=== PATIENT | male | born 1950 | race Caucasian/White ===

== ENCOUNTER 2017-08-31 07:49 | Inpatient (IN) | payer MEDICARE, OTHER ==
[~2017-08-31] VITALS: Ht 190.5 cm; Wt 136.4 kg
[~2017-08-31 07:49] MED LIST: ATOR20TA66 PO; BACL10TA PO; BENA20TA10 PO; CHOL2000 PO; CITA40TA22 PO; LAMO100T2 PO; LEVE10002 PO; METF500T4 PO; METO-384 PO; MULT-342 PO; RISP2TAB97 PO; UBID100C45 PO; UMEC1DIS INH
[2017-08-31] MEDS ORDERED: normal saline 1000ml 1,000 ML IV ONE (08:03)
[2017-08-31 08:57] LABS: BASOPHILS % (AUTO) 0.1 % (0-1); EOSINOPHILS # (AUTO) 0.1 X10'3 (0-0.9); HEMATOCRIT 44.2 % (42.0-52.0); LYMPHOCYTES # (AUTO) 0.5 X10'3 (1.1-4.8); LYMPHOCYTES % (AUTO) 3.2 % (21-51); MEAN CORPUSCULAR HEMOGLOBIN 31.5 PG (27.0-31.0); MEAN CORPUSCULAR VOLUME 92.7 FL (78-98); MEAN PLATELET VOLUME 7.1 FL (7.4-10.4); MONOCYTES # (AUTO) 0.2 X10'3 (0-0.9); MONOCYTES % (AUTO) 1.2 % (2-12); NEUTROPHILS # (AUTO) 13.3 X10'3 (1.8-7.7); NEUTROPHILS % (AUTO) 94.5 % (42-75); PLATELET COUNT 241 X10'3 (140-440); RED BLOOD COUNT 4.77 X10'6 (4.70-6.10); RED CELL DISTRIBUTION WIDTH 13.6 % (11.5-14.5)
[2017-08-31 09:07] LABS: PARTIAL THROMBOPLASTIN TIME 26 SECONDS (22-32)
[2017-08-31 09:16] LABS: PLATELET ESTIMATE NORMAL; TOTAL CELLS COUNTED 100
[2017-08-31 09:28] LABS: ALANINE AMINOTRANSFERASE 27 U/L (12-78); ALBUMIN 3.9 G/DL (3.4-5.0); ALBUMIN/GLOBULIN RATIO 1.1 (1.1-1.5); ALKALINE PHOSPHATASE 127 IU/L (46-116); ANION GAP 12 (8-16); ASPARTATE AMINO TRANSFERASE 24 U/L (10-37); BILIRUBIN,TOTAL 0.3 MG/DL (0.1-1.0); BLOOD UREA NITROGEN 12 MG/DL (7-18); BUN/CREATININE RATIO 8.6 (5.4-32.0); CALCIUM 8.9 MG/DL (8.5-10.1); CHLORIDE 98 MMOL/L (99-107); ETHANOL < 0.010 GM/DL (0.0-0.010); GLUCOSE 140 MG/DL (70-104); MAGNESIUM 1.8 MG/DL (1.5-2.4); PHOSPHORUS 3.2 MG/DL (2.3-4.5); POTASSIUM 4.8 MMOL/L (3.5-5.1); SODIUM 134 MMOL/L (135-145); TOTAL CARBON DIOXIDE 24.1 MMOL/L (24-32); TOTAL PROTEIN 7.3 G/DL (6.4-8.2); eGFR 51 ML/MIN
[2017-08-31 09:30] LABS: ACETAMINOPHEN < 2.0 UG/ML (10-30)
[2017-08-31] MEDS ORDERED: levetiracetam 250mg tablet PO ONE (09:50)
[2017-08-31] MEDS ORDERED: lamoTRIgine 100mg tablet PO SCH (09:50)
[2017-08-31] MEDS ORDERED: normal saline 1000ml 1,000 ML IV SCH (10:26)
[2017-08-31] MEDS ORDERED: HYDROcodone/acetaminophen 5mg/325mg tablet PO PRN (10:30)
[2017-08-31] MEDS ORDERED: potassium Cl 20 mEq SR tablet PO PRN ×2 (10:30)
[2017-08-31] MEDS ORDERED: potassium Cl 40MEQ/NS 500ml 500 ML IV PRN ×2 (10:30)
[2017-08-31] MEDS ORDERED: acetaminophen 325mg tablet PO PRN ×2 (10:30)
[2017-08-31] MEDS ORDERED: magnesium 4gm in 100ml NS 100 ML IV PRN (10:30)
[2017-08-31] MEDS ORDERED: HYDROmorphone 1 mg/ml syringe IV PRN (10:30)
[2017-08-31] MEDS ORDERED: magnesium 2GM in 50ml NS 50 ML IV PRN (10:30)
[2017-08-31] MEDS ORDERED: mag hydrox/Alum hydrox/simeth 30ml oral suspension PO PRN (10:30)
[2017-08-31] MEDS ORDERED: ondansetron/PF 4mg/2ml inj IV PRN (10:30)
[2017-08-31] MEDS ORDERED: magnesium hydroxide 30ml (MOM) UD suspension PO PRN (10:30)
[2017-08-31] MEDS ORDERED: HYDROcodone/acetaminophen 10/325mg tab PO PRN (10:30)
[2017-08-31 12:52] LABS: CLARITY,URINE Clear (Clear); COLOR,URINE Yellow (Yellow); GLUCOSE, URINE Negative (Neg); KETONES,URINE Negative (Neg); LEUKOCYTE ESTERASE ,URINE Negative (Neg); NITRITES, URINE Negative (Neg); OCCULT BLOOD,URINE Negative (Neg); PH,URINE 5.5 (4.8-8.0); PROTEIN,URINE 30 mg/dl (Neg)
[2017-08-31 13:04] LABS: UA COLLECTION TYPE NON-SPECIFIED
[2017-08-31 13:05] LABS: BACTERIA,URINE NONE SEEN /HPF (Neg); MUCUS STRANDS FEW /LPF (Neg); RBC,URINE NONE SEEN /HPF (0-2); SQUAMOUS EPITHELIAL CELL,UR NONE SEEN /LPF (FEW); WBC,URINE NONE SEEN /HPF (0-4)
[2017-08-31 13:07] LABS: URINE AMPHETAMINE SCREEN NEGATIVE (Neg); URINE BARBITUATE SCREEN NEGATIVE (Neg); URINE BENZODIAZEPINES SCREEN POSITIVE (Neg); URINE CANNABINOID SCREEN POSITIVE (Neg); URINE COCAINE SCREEN NEGATIVE (Neg); URINE METHADONE SCREEN NEGATIVE (Neg); URINE OPIATE SCREEN NEGATIVE (Neg); URINE PHENCYCLIDINE SCREEN NEGATIVE (Neg)
[2017-08-31 18:50] VITALS: BP 150/74
[2017-08-31] MEDS: lamoTRIgine 100mg tablet PO SCH (20:10)
[2017-08-31] MEDS: levetiracetam 250mg tablet PO SCH (20:10)
[2017-08-31] MEDS: vitamin D (cholecalciferol) 1,000 unit tablet PO SCH (20:10)
[2017-08-31] MEDS: metFORMIN 500mg tablet PO SCH (20:12)
[2017-08-31] MEDS ORDERED: risperiDONE 2mg tablet PO SCH (21:00)
[2017-08-31 22:52] VITALS: BP 167/91
[2017-09-01] MEDS ORDERED: LORazepam 2 mg/ml vial IM PRN (05:25)
[2017-09-01] MEDS ORDERED: LORazepam 2 mg/ml vial IV PRN (05:25)
[2017-09-01 06:00] VITALS: BP 123/92
[2017-09-01 06:00] LABS: BASOPHILS % (AUTO) 0.2 % (0-1); EOSINOPHILS # (AUTO) 0.1 X10'3 (0-0.9); HEMATOCRIT 41.9 % (42.0-52.0); HEMOGLOBIN 14.3 g/dl (14.0-17.9); LYMPHOCYTES # (AUTO) 1.7 X10'3 (1.1-4.8); LYMPHOCYTES % (AUTO) 15.3 % (21-51); MEAN CORPUSCULAR HEMOGLOBIN 31.5 PG (27.0-31.0); MEAN CORPUSCULAR HGB CONC 34.1 % (33.0-36.5); MEAN CORPUSCULAR VOLUME 92.4 FL (78-98); MEAN PLATELET VOLUME 7.4 FL (7.4-10.4); MONOCYTES # (AUTO) 0.6 X10'3 (0-0.9); MONOCYTES % (AUTO) 5.7 % (2-12); NEUTROPHILS # (AUTO) 8.8 X10'3 (1.8-7.7); NEUTROPHILS % (AUTO) 77.8 % (42-75); PLATELET COUNT 233 X10'3 (140-440); RED BLOOD COUNT 4.53 X10'6 (4.70-6.10); RED CELL DISTRIBUTION WIDTH 13.3 % (11.5-14.5); WHITE BLOOD COUNT 11.3 X10'3 (4.5-11.0)
[2017-09-01 06:10] LABS: PARTIAL THROMBOPLASTIN TIME 27 SECONDS (22-32)
[2017-09-01 06:14] LABS: ALBUMIN 3.7 G/DL (3.4-5.0); ANION GAP 9 (8-16); BLOOD UREA NITROGEN 10 MG/DL (7-18); BUN/CREATININE RATIO 9.1 (5.4-32.0); CALCIUM 8.8 MG/DL (8.5-10.1); CHLORIDE 101 MMOL/L (99-107); GLUCOSE 101 MG/DL (70-104); MAGNESIUM 1.5 MG/DL (1.5-2.4); POTASSIUM 3.7 MMOL/L (3.5-5.1); SODIUM 137 MMOL/L (135-145); TOTAL CARBON DIOXIDE 26.7 MMOL/L (24-32); eGFR 67 ML/MIN
[2017-09-01] MEDS: levetiracetam 250mg tablet PO SCH (07:52)
[2017-09-01] MEDS: metFORMIN 500mg tablet PO SCH (07:57)
[2017-09-01] MEDS: lamoTRIgine 100mg tablet PO SCH (07:59)
[2017-09-01] MEDS ORDERED: metoprolol succinate 25mg (24-HOUR) SR. Tablet PO SCH (08:00)
[2017-09-01] MEDS: vitamin D (cholecalciferol) 1,000 unit tablet PO SCH (08:00)
[2017-09-01] MEDS ORDERED: K and/or MAG REPLACEMENT MC SCH (08:00)
[2017-09-01] MEDS ORDERED: multivitamins, therapeutics tablet PO SCH (08:00)
[2017-09-01] MEDS ORDERED: atorvastatin 20mg tablet PO SCH (08:00)
[2017-09-01] MEDS ORDERED: Umeclidinium Brm/Vilanterol Tr (Anoro Ellipta 62.5-25 Mcg INH) IH SCH (08:00)
[2017-09-01] MEDS ORDERED: lisinopril 20mg tablet PO SCH (08:00)
[2017-09-01] MEDS ORDERED: non-formulary drug (Ubidecarenone (Co Q-10) 100 MG) PO SCH (08:00)
[2017-09-01] MEDS ORDERED: citalopram 20mg tablet PO SCH (08:00)
[2017-09-01 10:00] VITALS: BP 108/72
[2017-09-01] MEDS ORDERED: magnesium 4gm in 100ml NS 100 ML IV ONE (10:05)
[2017-09-01] MEDS: magnesium Cl slow-release 64mg tablet PO PRN ×2 (11:02→12:30)
[2017-09-01] MEDS ORDERED: MAGN400C PO (15:49)
== END 2017-09-01 17:45 | disposition home or self-care (01) | DRG 100 ==
LOC: ER 07:50 → ED HOLD 10:26 → ORTHO 4S 12:47
PROVIDERS: ADMIT Emergency Medicine; ATTEND Emergency Medicine
DX: G40.901 Epilepsy, unspecified, not intractable, with status epilepticus (principal); R65.11 Systemic inflammatory response syndrome (SIRS) of non-infectious origin with acute organ dysfunction; N17.9 Acute kidney failure, unspecified; J44.9 Chronic obstructive pulmonary disease, unspecified; E11.9 Type 2 diabetes mellitus without complications; G47.30 Sleep apnea, unspecified; R41.82 Altered mental status, unspecified; R60.9 Edema, unspecified; I10 Essential (primary) hypertension; Z72.89 Other problems related to lifestyle; Z88.0 Allergy status to penicillin; Z79.84 Long term (current) use of oral hypoglycemic drugs; Z79.899 Other long term (current) drug therapy; Z87.891 Personal history of nicotine dependence
CPT/HCPCS: 36415; 70450; 80048; 80053; 80305; 80320; 80329; 81001; 82948; 83605; 83735; 84100; 84443; 84484; 85025; 85610; 85730; 87040; 87070; 93005; 96360; 97116; 97162; 97530; 99291; J3475; J7030

== ENCOUNTER 2018-02-12 17:36 | Emergency (ER) | payer MEDICARE, OTHER ==
[~2018-02-12] VITALS: Ht 170.2 cm; Wt 134.0 kg
[~2018-02-12 17:36] MED LIST changes: +MAGN400C PO; +METF-436 PO; -METF500T4 PO
[2018-02-12] MEDS ORDERED: normal saline 1000ML IV soln IVB ONE (17:40)
[2018-02-12] MEDS ORDERED: LORazepam 2 mg/ml vial IV ONE (18:00)
[2018-02-12 18:10] LABS: BASOPHILS % (AUTO) 0.3 % (0-1); EOSINOPHILS % (AUTO) 0.1 % (0-6); HEMOGLOBIN 15.4 g/dl (14.0-17.9); LYMPHOCYTES # (AUTO) 1.4 X10'3 (1.1-4.8); LYMPHOCYTES % (AUTO) 12.8 % (21-51); MEAN CORPUSCULAR HEMOGLOBIN 31.8 PG (27.0-31.0); MEAN CORPUSCULAR HGB CONC 34.3 % (33.0-36.5); MEAN CORPUSCULAR VOLUME 92.7 FL (78-98); MEAN PLATELET VOLUME 7.3 FL (7.4-10.4); MONOCYTES # (AUTO) 0.4 X10'3 (0-0.9); NEUTROPHILS # (AUTO) 9.2 X10'3 (1.8-7.7); NEUTROPHILS % (AUTO) 82.8 % (42-75); PLATELET COUNT 232 X10'3 (140-440); RED BLOOD COUNT 4.85 X10'6 (4.70-6.10); RED CELL DISTRIBUTION WIDTH 13.6 % (11.5-14.5); WHITE BLOOD COUNT 11.1 X10'3 (4.5-11.0)
[2018-02-12 18:20] LABS: PARTIAL THROMBOPLASTIN TIME 28 SECONDS (22-32); PROTHROMBIN TIME 10.3 SECONDS (9.0-12.0)
[2018-02-12 18:24] LABS: ALANINE AMINOTRANSFERASE 25 U/L (12-78); ALBUMIN 3.6 G/DL (3.4-5.0); ALBUMIN/GLOBULIN RATIO 0.9 (1.1-1.5); ALKALINE PHOSPHATASE 133 IU/L (46-116); ANION GAP 11 (8-16); BILIRUBIN,TOTAL 0.5 MG/DL (0.1-1.0); BLOOD UREA NITROGEN 12 MG/DL (7-18); BUN/CREATININE RATIO 12.5 (5.4-32.0); CHLORIDE 97 MMOL/L (99-107); CREATININE 0.96 MG/DL (0.60-1.10); GLUCOSE 114 MG/DL (70-104); SODIUM 132 MMOL/L (135-145); TOTAL PROTEIN 7.6 G/DL (6.4-8.2); eGFR 78 ML/MIN
[2018-02-12 18:25] LABS: ASPARTATE AMINO TRANSFERASE 35 U/L (10-37); POTASSIUM 5.1 MMOL/L (3.5-5.1)
[2018-02-12] MEDS ORDERED: levetiracetam inj 1,000 MG in normal saline 100ml IV soln 90 ML IV STA (18:35)
[2018-02-12] MEDS ORDERED: levetiracetam 250mg tablet PO ONE (19:40)
[2018-02-12] MEDS ORDERED: levetiracetam inj 1,000 MG in normal saline 100ml IV soln 90 ML IV ONE (20:00)
[2018-02-12 20:25] VITALS: BP 139/80
== END 2018-02-12 20:10 | disposition home or self-care (01) ==
LOC: ER 17:37
DX: G40.909 Epilepsy, unspecified, not intractable, without status epilepticus (principal); I10 Essential (primary) hypertension; J44.9 Chronic obstructive pulmonary disease, unspecified; E11.9 Type 2 diabetes mellitus without complications; R79.1 Abnormal coagulation profile; Z87.891 Personal history of nicotine dependence; Z88.0 Allergy status to penicillin; Z79.84 Long term (current) use of oral hypoglycemic drugs; Z79.899 Other long term (current) drug therapy
CPT/HCPCS: 36415; 70450; 71045; 80053; 85025; 85610; 85730; 93005; 96361; 96365; 96375; 99285; J1953; J2060; J7030

== ENCOUNTER 2019-06-28 14:18 | Day surgery (SDC) | payer MEDICARE, MEDICAID ==
[2019-06-23 15:43] LABS: BASOPHILS # (AUTO) 0.1 X10'3 (0-0.2); BASOPHILS % (AUTO) 0.7 % (0-1); EOSINOPHILS # (AUTO) 0.1 X10'3 (0-0.9); EOSINOPHILS % (AUTO) 1.2 % (0-6); HEMATOCRIT 40.5 % (42.0-52.0); HEMOGLOBIN 13.9 g/dl (14.0-17.9); LYMPHOCYTES # (AUTO) 2.6 X10'3 (1.1-4.8); LYMPHOCYTES % (AUTO) 26.8 % (21-51); MEAN CORPUSCULAR HEMOGLOBIN 33.1 PG (27.0-31.0); MEAN CORPUSCULAR HGB CONC 34.4 g/dL (33.0-36.5); MEAN CORPUSCULAR VOLUME 96.1 FL (78-98); MEAN PLATELET VOLUME 8.2 FL (7.4-10.4); MONOCYTES # (AUTO) 0.5 X10'3 (0-0.9); MONOCYTES % (AUTO) 5.4 % (2-12); NEUTROPHILS # (AUTO) 6.5 X10'3 (1.8-7.7); NEUTROPHILS % (AUTO) 65.9 % (42-75); PLATELET COUNT 267 X10'3 (140-440); RED BLOOD COUNT 4.21 X10'6 (4.70-6.10); RED CELL DISTRIBUTION WIDTH 13.2 % (11.5-14.5); WHITE BLOOD COUNT 9.9 X10'3 (4.5-11.0)
[2019-06-23 16:00] LABS: ALBUMIN 3.7 G/DL (3.4-5.0); ANION GAP 7 (8-16); BLOOD UREA NITROGEN 14 MG/DL (7-18); BUN/CREATININE RATIO 12.8 (5.4-32.0); CALCIUM 9.2 MG/DL (8.5-10.1); CHLORIDE 96 MMOL/L (99-107); CREATININE 1.09 MG/DL (0.60-1.10); GLUCOSE 103 MG/DL (70-104); POTASSIUM 4.4 MMOL/L (3.5-5.1); SODIUM 133 MMOL/L (135-145); TOTAL CARBON DIOXIDE 29.7 MMOL/L (24-32); eGFR 67 ML/MIN
[2019-06-23 16:01] LABS: PARTIAL THROMBOPLASTIN TIME 28 SECONDS (22-32)
[~2019-06-28] VITALS: Ht 190.5 cm; Wt 109.3 kg
[2019-06-28] VITALS (8 sets, daily range): BP systolic 102–128; BP diastolic 47–72
[2019-06-28] MEDS ORDERED: diphenhydrAMINE 25mg capsule PO PRN (14:30)
[2019-06-28] MEDS ORDERED: LORazepam 0.5 MG tablet PO PRN (14:30)
[2019-06-28] MEDS ORDERED: normal saline 1,000 ML IV SCH (14:30)
[2019-06-28] MEDS ORDERED: LORA2TAB96 PO (16:35)
[2019-06-28] MEDS ORDERED: FINA5TAB11 PO (16:35)
[2019-06-28] MEDS ORDERED: SERT100T10 PO (16:35)
[2019-06-28] MEDS ORDERED: DIVA500T2 PO (16:35)
[2019-06-28] MEDS ORDERED: FLO0.4C PO (16:35)
[2019-06-28] MEDS ORDERED: ZONI100C42 PO (16:35)
[2019-06-28] MEDS ORDERED: LAMO200T2 PO (16:35)
[2019-06-28] MEDS ORDERED: LIDOcaine 1% (10mg/ml)w/preservative injection 20ml MDV ONE (20:07)
[2019-06-28] MEDS ORDERED: fentaNYL/PF 50MCG/1 ML 2ML syringe ONE (20:07)
[2019-06-28] MEDS ORDERED: iohexol 350MG/ML 100ml bottle IV ONE (20:07)
[2019-06-28] MEDS ORDERED: midazolam 2 mg/2 ml injection ONE (20:07)
--- NOTE | 2019-06-28 20:15 | NUR ---
Patient in room . I have received report from Ivan JONES and had the opportunity to ask questions and assume patient care.
--- NOTE | 2019-06-28 22:31 | NUR ---
pt discharged home with daughter pts groin site was clean no bleeding now hematoma, pt alert and oriented vs stable, pt stable at time od DC all questions answered.
== END 2019-06-28 22:31 | disposition home or self-care (01) ==
LOC: SSTAY O 14:18
PROVIDERS: ATTEND Internal Medicine Interventional Cardiology
DX: R94.39 Abnormal result of other cardiovascular function study (principal); I25.10 Atherosclerotic heart disease of native coronary artery without angina pectoris; E78.5 Hyperlipidemia, unspecified; J44.9 Chronic obstructive pulmonary disease, unspecified; G47.33 Obstructive sleep apnea (adult) (pediatric); E11.9 Type 2 diabetes mellitus without complications; I25.2 Old myocardial infarction; Z79.899 Other long term (current) drug therapy; Z79.84 Long term (current) use of oral hypoglycemic drugs; Z87.891 Personal history of nicotine dependence; Z88.0 Allergy status to penicillin; Z79.01 Long term (current) use of anticoagulants
CPT/HCPCS: 36415; 80048; 85025; 85610; 85730; 93005; 93458; 99152; C1769; J1644; J2001; J2250; J3010; J7030; Q0163; Q9967; A6258

== ENCOUNTER 2019-07-02 11:53 | Observation (INO) | payer MEDICARE, MEDICAID ==
[~2019-07-02] VITALS: Ht 190.5 cm; Wt 109.4 kg
[~2019-07-02 11:53] MED LIST changes: -BACL10TA PO; -BENA20TA10 PO; -CITA40TA22 PO; +DIVA500T2 PO; +FINA5TAB11 PO; +FLO0.4C PO; -LAMO100T2 PO; +LAMO200T2 PO; -LEVE10002 PO; +LORA2TAB96 PO; -MAGN400C PO; -MULT-342 PO; -RISP2TAB97 PO; +SERT100T10 PO; +ZONI100C42 PO
--- NOTE | 2019-07-02 12:26 | NUR ---
TELE NEURO CONSULT INITIATED
[2019-07-02 12:58] LABS: BASOPHILS % (AUTO) 0.3 % (0-1); EOSINOPHILS # (AUTO) 0.1 X10'3 (0-0.9); EOSINOPHILS % (AUTO) 0.9 % (0-6); HEMATOCRIT 39.1 % (42.0-52.0); HEMOGLOBIN 13.5 g/dl (14.0-17.9); LYMPHOCYTES # (AUTO) 1.5 X10'3 (1.1-4.8); LYMPHOCYTES % (AUTO) 16.7 % (21-51); MEAN CORPUSCULAR HGB CONC 34.4 g/dL (33.0-36.5); MEAN CORPUSCULAR VOLUME 95.8 FL (78-98); MEAN PLATELET VOLUME 7.9 FL (7.4-10.4); MONOCYTES # (AUTO) 0.4 X10'3 (0-0.9); MONOCYTES % (AUTO) 4.5 % (2-12); NEUTROPHILS # (AUTO) 7.1 X10'3 (1.8-7.7); NEUTROPHILS % (AUTO) 77.6 % (42-75); PLATELET COUNT 171 X10'3 (140-440); RED BLOOD COUNT 4.07 X10'6 (4.70-6.10); RED CELL DISTRIBUTION WIDTH 13.2 % (11.5-14.5); WHITE BLOOD COUNT 9.1 X10'3 (4.5-11.0)
[2019-07-02 13:09] LABS: PARTIAL THROMBOPLASTIN TIME 29 SECONDS (22-32)
[2019-07-02 13:14] LABS: ALANINE AMINOTRANSFERASE 19 U/L (12-78); ALBUMIN 3.8 G/DL (3.4-5.0); ALBUMIN/GLOBULIN RATIO 1.1 (1.1-1.5); ALKALINE PHOSPHATASE 100 IU/L (46-116); ANION GAP 9 (8-16); ASPARTATE AMINO TRANSFERASE 16 U/L (10-37); BILIRUBIN,TOTAL 0.3 MG/DL (0.1-1.0); BLOOD UREA NITROGEN 11 MG/DL (7-18); BUN/CREATININE RATIO 11.1 (5.4-32.0); CALCIUM 9.2 MG/DL (8.5-10.1); CHLORIDE 95 MMOL/L (99-107); CREATININE 0.99 MG/DL (0.60-1.10); GLUCOSE 84 MG/DL (70-104); POTASSIUM 4.3 MMOL/L (3.5-5.1); SODIUM 131 MMOL/L (135-145); TOTAL CARBON DIOXIDE 27.1 MMOL/L (24-32); TOTAL PROTEIN 7.4 G/DL (6.4-8.2); eGFR 75 ML/MIN
[2019-07-02 13:18] LABS: TROPONIN I < 0.04 NG/ML (0.0-0.05)
--- NOTE | 2019-07-02 13:21 | NUR ---
PT NEEDS ROOM NEXT TO NURSING STATION ON ADMISSION
[2019-07-02] MEDS ORDERED: famotidine/PF 10 mg/ml inj IV ONE (13:45)
[2019-07-02] MEDS ORDERED: aspirin 325mg tablet PO ONE (13:45)
[2019-07-02 14:15] LABS: CLARITY,URINE CLEAR (Clear); COLOR,URINE YELLOW (Yellow); GLUCOSE, URINE NEGATIVE (Neg); KETONES,URINE NEGATIVE (Neg); LEUKOCYTE ESTERASE ,URINE NEGATIVE (Neg); NITRITES, URINE NEGATIVE (Neg); OCCULT BLOOD,URINE NEGATIVE (Neg); PROTEIN,URINE NEGATIVE (Neg); UROBILINOGEN,URINE 0.2 E.U/dL (0.2-1.0)
[2019-07-02 14:18] LABS: UA COLLECTION TYPE CLN CATCH MIDSTREAM
[2019-07-02] MEDS ORDERED: mag hydrox/Alum hydrox/simeth 30ml oral suspension PO PRN (14:35)
[2019-07-02] MEDS ORDERED: MESSAGE TO PHARMACY PO ONE (14:35)
[2019-07-02] MEDS ORDERED: potassium CL 10mEq/100ml bag 100 ML IV PRN ×2 (14:35)
[2019-07-02] MEDS ORDERED: docusate sod 100mg capsule PO PRN (14:35)
[2019-07-02] MEDS ORDERED: magnesium 4gm in 100ml NS 100 ML IV PRN (14:35)
[2019-07-02] MEDS ORDERED: acetaminophen 325mg tablet PO PRN (14:35)
[2019-07-02] MEDS ORDERED: magnesium 2GM in 50ml NS 50 ML IV PRN (14:35)
[2019-07-02] MEDS ORDERED: dextrose ORAL solution 15 GM/59 ML bottle PO PRN ×2 (14:35)
[2019-07-02] MEDS ORDERED: ondansetron/PF 4mg/2ml inj IV PRN (14:35)
[2019-07-02] MEDS ORDERED: ipratropium/albuterol 3ml nebule NEB PRN (14:35)
[2019-07-02] MEDS ORDERED: glucagon, human recombinant 1mg kit SUBCUT PRN (14:35)
[2019-07-02] MEDS ORDERED: dextrose 50%-water 50ml dispensing syringe IV PRN ×2 (14:35)
[2019-07-02] MEDS ORDERED: insulin Lispro (HumaLOG) vial - multi-dose SQ SCH (14:35)
[2019-07-02] MEDS ORDERED: potassium Cl 20 mEq SR tablet PO PRN ×2 (14:35)
--- NOTE | 2019-07-02 15:00 | NUR ---
Patient in room ED 5. I have received report from Fadi in the ED and had the opportunity to ask questions and assume patient care.
[2019-07-02 15:07] LABS: HEMOGLOBIN A1C 5.9 % (4.5-6.2)
--- NOTE | 2019-07-02 15:15 | NUR ---
Pt arrived on floor, tucked in, skin check, vitals done
[2019-07-02 15:31] VITALS: BP 140/80
[2019-07-02] MEDS ORDERED: LORazepam 1 MG tablet PO PRN (15:35)
[2019-07-02 18:00] VITALS: BP 127/67
--- NOTE | 2019-07-02 18:02 | NUR ---
Problems reprioritized. Patient report given, questions answered & plan of care reviewed with Xuan.
--- NOTE | 2019-07-02 18:30 | NUR ---
Assumed care of patient with Xuan JONES and verbal report from Elisabeth JONES
[2019-07-02] MEDS: vitamin D (cholecalciferol) 1,000 unit tablet PO SCH (19:50)
[2019-07-02] MEDS: lamoTRIgine 100mg tablet PO SCH (19:50)
[2019-07-02] MEDS: divalproex sodium 500mg tablet.DR PO SCH (19:51)
[2019-07-02] MEDS ORDERED: ZONEGRAN 100 MG PO SCH (20:00)
[2019-07-02] MEDS ORDERED: insulin glargine (Lantus) pen - multi-dose SQ SCH (21:00)
[2019-07-02 22:01] VITALS: BP 112/62
[2019-07-03] VITALS: BP 120/60
[2019-07-03 02:03] VITALS: BP 109/60
[2019-07-03 04:00] VITALS: BP 107/55
[2019-07-03 05:27] LABS: BASOPHILS % (AUTO) 0.5 % (0-1); EOSINOPHILS # (AUTO) 0.1 X10'3 (0-0.9); EOSINOPHILS % (AUTO) 1.8 % (0-6); HEMATOCRIT 37.4 % (42.0-52.0); LYMPHOCYTES # (AUTO) 2.6 X10'3 (1.1-4.8); LYMPHOCYTES % (AUTO) 31.5 % (21-51); MEAN CORPUSCULAR HEMOGLOBIN 33.4 PG (27.0-31.0); MEAN CORPUSCULAR HGB CONC 34.7 g/dL (33.0-36.5); MEAN CORPUSCULAR VOLUME 96.3 FL (78-98); MEAN PLATELET VOLUME 8.3 FL (7.4-10.4); MONOCYTES # (AUTO) 0.6 X10'3 (0-0.9); MONOCYTES % (AUTO) 7.1 % (2-12); NEUTROPHILS % (AUTO) 59.1 % (42-75); PLATELET COUNT 170 X10'3 (140-440); RED BLOOD COUNT 3.89 X10'6 (4.70-6.10); RED CELL DISTRIBUTION WIDTH 13.3 % (11.5-14.5); WHITE BLOOD COUNT 8.4 X10'3 (4.5-11.0)
[2019-07-03 05:44] LABS: ANION GAP 9 (8-16); BLOOD UREA NITROGEN 14 MG/DL (7-18); CHLORIDE 100 MMOL/L (99-107); CREATININE 1.08 MG/DL (0.60-1.10); GLUCOSE 81 MG/DL (70-104); SODIUM 134 MMOL/L (135-145); TOTAL CARBON DIOXIDE 25.5 MMOL/L (24-32)
[2019-07-03 05:45] LABS: ALANINE AMINOTRANSFERASE 15 U/L (12-78); ALBUMIN 3.2 G/DL (3.4-5.0); ASPARTATE AMINO TRANSFERASE 14 U/L (10-37); BILIRUBIN,TOTAL 0.3 MG/DL (0.1-1.0); CALCIUM 8.8 MG/DL (8.5-10.1); CHOL/HDL RATIO 2.6 (0.00-4.99); CHOLESTEROL 126 MG/DL (0-200); HDL CHOLESTEROL 49 MG/DL (35-60); LDL CHOLESTEROL 65 MG/DL (50-100); MAGNESIUM 1.8 MG/DL (1.5-2.4); TOTAL PROTEIN 6.5 G/DL (6.4-8.2); TRIGLYCERIDES 68 MG/DL (20-135); eGFR 68 ML/MIN
[2019-07-03 05:46] LABS: ALKALINE PHOSPHATASE 82 IU/L (46-116)
--- NOTE | 2019-07-03 06:18 | NUR ---
Problems reprioritized. Patient report given, questions answered & plan of care reviewed with KAREN Rangel.
--- NOTE | 2019-07-03 06:30 | NUR ---
Patient in room [facility]TH[facility] 4010. I have received report from Xuan JONES and had the opportunity to ask questions and assume patient care.
[2019-07-03] MEDS: divalproex sodium 500mg tablet.DR PO SCH (07:16)
[2019-07-03] MEDS: vitamin D (cholecalciferol) 1,000 unit tablet PO SCH (07:16)
[2019-07-03 08:00] VITALS: BP 99/62
[2019-07-03] MEDS ORDERED: non-formulary drug (Umeclidinium Brm/Vilanterol Tr (Anoro Ellipta 62.5-25 Mcg INH) 1 PUFF) IH SCH (08:00)
[2019-07-03] MEDS ORDERED: non-formulary drug (Ubidecarenone (Co Q-10) 100 MG) PO SCH (08:00)
[2019-07-03] MEDS ORDERED: sertraline 50mg tablet PO SCH (08:00)
[2019-07-03] MEDS ORDERED: finasteride 5mg tablet PO SCH (08:00)
[2019-07-03] MEDS ORDERED: atorvastatin 20mg tablet PO SCH (08:00)
[2019-07-03] MEDS ORDERED: K and/or MAG REPLACEMENT MC SCH (08:00)
[2019-07-03] MEDS ORDERED: tamsulosin 0.4mg capsule PO SCH (08:00)
[2019-07-03] MEDS: lamoTRIgine 100mg tablet PO SCH (08:51)
--- NOTE | 2019-07-03 09:59 | NUR ---
DM consult: Patient's A1c is 5.9, DM education not warranted at this time. Will continue to follow. Addendum: 07/03/19 at [address] Amended: Links added.
[2019-07-03 12:00] VITALS: BP 105/55
[2019-07-03] MEDS ORDERED: ASPI-1264 PO (12:41)
--- NOTE | 2019-07-03 14:15 | NUR ---
Patient discharged with told to follow up with pcp. Aspirin e-scripted to irlanda ignacio. Patient taken out in wheelchair.
== END 2019-07-03 14:15 | disposition home or self-care (01) ==
LOC: ER 11:55 → ED HOLD 14:35 → EDBEDREQ 14:47 → ORTHO 4S 15:15
PROVIDERS: ADMIT Family Medicine; ATTEND Family Medicine
DX: G45.9 Transient cerebral ischemic attack, unspecified (principal); H53.2 Diplopia; G40.909 Epilepsy, unspecified, not intractable, without status epilepticus; E78.5 Hyperlipidemia, unspecified; F41.9 Anxiety disorder, unspecified; I10 Essential (primary) hypertension; E55.9 Vitamin D deficiency, unspecified; F32.9 Major depressive disorder, single episode, unspecified; E11.9 Type 2 diabetes mellitus without complications; J44.9 Chronic obstructive pulmonary disease, unspecified; Z87.891 Personal history of nicotine dependence; Z89.512 Acquired absence of left leg below knee; Z95.0 Presence of cardiac pacemaker; Z79.84 Long term (current) use of oral hypoglycemic drugs; Z79.82 Long term (current) use of aspirin; Z79.899 Other long term (current) drug therapy; Z88.0 Allergy status to penicillin
CPT/HCPCS: 36415; 70450; 71045; 80053; 80061; 81003; 82948; 83036; 83735; 84484; 85025; 85610; 85651; 85730; 87081; 92508; 92616; 93005; 93306; 93880; 94760; 96374; 97112; 97116; 97161; 97530; 99284; G0378; J3490; J1815

== ENCOUNTER 2019-07-08 09:28 | Emergency (ER) | payer MEDICARE, MEDICAID ==
[~2019-07-08] VITALS: Ht 190.5 cm; Wt 109.1 kg
[~2019-07-08 09:28] MED LIST changes: +ASPI-1264 PO
[2019-07-08 10:09] LABS: BASOPHILS % (AUTO) 0.6 % (0-1); EOSINOPHILS # (AUTO) 0.2 X10'3 (0-0.9); EOSINOPHILS % (AUTO) 2.4 % (0-6); HEMATOCRIT 41.1 % (42.0-52.0); LYMPHOCYTES # (AUTO) 1.7 X10'3 (1.1-4.8); LYMPHOCYTES % (AUTO) 24.3 % (21-51); MEAN CORPUSCULAR HEMOGLOBIN 32.8 PG (27.0-31.0); MEAN CORPUSCULAR VOLUME 96.6 FL (78-98); MEAN PLATELET VOLUME 8.1 FL (7.4-10.4); MONOCYTES # (AUTO) 0.4 X10'3 (0-0.9); MONOCYTES % (AUTO) 6.3 % (2-12); NEUTROPHILS # (AUTO) 4.6 X10'3 (1.8-7.7); NEUTROPHILS % (AUTO) 66.4 % (42-75); PLATELET COUNT 202 X10'3 (140-440); RED BLOOD COUNT 4.26 X10'6 (4.70-6.10); RED CELL DISTRIBUTION WIDTH 13.1 % (11.5-14.5)
[2019-07-08 10:14] LABS: PARTIAL THROMBOPLASTIN TIME 28 SECONDS (22-32)
[2019-07-08 10:19] LABS: ALANINE AMINOTRANSFERASE 23 U/L (12-78); ALBUMIN 3.7 G/DL (3.4-5.0); ALKALINE PHOSPHATASE 99 IU/L (46-116); ANION GAP 10 (8-16); ASPARTATE AMINO TRANSFERASE 21 U/L (10-37); BILIRUBIN,TOTAL 0.4 MG/DL (0.1-1.0); BLOOD UREA NITROGEN 10 MG/DL (7-18); BUN/CREATININE RATIO 9.5 (5.4-32.0); CALCIUM 9.2 MG/DL (8.5-10.1); CHLORIDE 99 MMOL/L (99-107); CREATININE 1.05 MG/DL (0.60-1.10); GLUCOSE 115 MG/DL (70-104); POTASSIUM 4.1 MMOL/L (3.5-5.1); SODIUM 134 MMOL/L (135-145); TOTAL CARBON DIOXIDE 25.4 MMOL/L (24-32); TOTAL PROTEIN 7.3 G/DL (6.4-8.2); eGFR 70 ML/MIN
[2019-07-08 10:22] LABS: TROPONIN I < 0.04 NG/ML (0.0-0.05)
[2019-07-08 10:41] LABS: VALPROATE 76 UG/ML (50-100)
[2019-07-08 10:43] LABS: ETHANOL < 0.010 GM/DL (0.0-0.010)
[2019-07-08 11:22] LABS: CLARITY,URINE CLEAR (Clear); COLOR,URINE YELLOW (Yellow); GLUCOSE, URINE NEGATIVE (Neg); KETONES,URINE NEGATIVE (Neg); LEUKOCYTE ESTERASE ,URINE NEGATIVE (Neg); NITRITES, URINE NEGATIVE (Neg); OCCULT BLOOD,URINE NEGATIVE (Neg); PROTEIN,URINE NEGATIVE (Neg)
[2019-07-08 11:27] LABS: UA COLLECTION TYPE CLN CATCH MIDSTREAM
[2019-07-08 11:30] LABS: URINE AMPHETAMINE SCREEN NEGATIVE (Neg); URINE BARBITUATE SCREEN NEGATIVE (Neg); URINE BENZODIAZEPINES SCREEN NEGATIVE (Neg); URINE CANNABINOID SCREEN POSITIVE (Neg); URINE COCAINE SCREEN NEGATIVE (Neg); URINE METHADONE SCREEN NEGATIVE (Neg); URINE OPIATE SCREEN NEGATIVE (Neg); URINE PHENCYCLIDINE SCREEN NEGATIVE (Neg)
[2019-07-08 12:05] VITALS: BP 106/52
== END 2019-07-08 12:09 | disposition home or self-care (01) ==
LOC: ER 09:28
DX: H53.2 Diplopia (principal); R53.1 Weakness; H53.8 Other visual disturbances; I10 Essential (primary) hypertension; J44.9 Chronic obstructive pulmonary disease, unspecified; E11.9 Type 2 diabetes mellitus without complications; R79.1 Abnormal coagulation profile; Z86.69 Personal history of other diseases of the nervous system and sense organs; Z98.890 Other specified postprocedural states; Z88.0 Allergy status to penicillin; Z79.82 Long term (current) use of aspirin; Z79.84 Long term (current) use of oral hypoglycemic drugs; Z79.899 Other long term (current) drug therapy
CPT/HCPCS: 36415; 70450; 71045; 80053; 80164; 80305; 80320; 81003; 84484; 85025; 85610; 85730; 93005; 99284